=== PATIENT | male | born 1960 | race Caucasian/White ===

== ENCOUNTER 2019-06-10 19:59 | Emergency (ER) | payer SELFPAY ==
--- NOTE | 2019-06-10 20:12 | ED Physician Documentation ---
History of Present Illness - Stated complaint Stated Complaint: RACING HEART - Additonal information Additional information: This is a 58-year-old male who denies past medical history who presents with feeling of heart palpitations that began around 5 days ago. Patient states aft er he worked out at the gym 5 days ago he developed palpitations and he could hear his heartbeat in his ears, he states that it also felt irregular to him, like it was not beating at a standard interval. He denies any chest pain. He denies any shortness of breath, leg swelling, nausea or vomiting. He does not take any medications. He did state that he drank heavily a few days prior to the onset of his symptoms, he uses marijuana but otherwise denies drug use. He denies any cardiac history. His father did have a history of a valve repair later in life, no other family cardiac history. Review of Systems Constitutional: denies: Fever Eyes: denies: Loss of vision Ears: reports: Other (+ for hearing heartbeat in ears) Nose: denies: Rhinorrhea / runny nose Throat: denies: Sore throat Cardiac: reports: Palpitations Respiratory: denies: Dyspnea GI: denies: Vomiting Skin: denies: Rash Neurologic: denies: Syncope PD PAST MEDICAL HISTORY - Past Medical History Past Medical History: No - Past Surgical History Past Surgical History: No - Present Medications Home Medications: Ambulatory Orders Medication Instructions Recorded Confirmed Aspirin Chewable [[facility] Jaquan 81 mg PO DAILY #30 tablet 06/10/19 Aspirin] - Allergies Allergies/Adverse Reactions: Allergies Allergy/AdvReac Type Severity Reaction Status Date / Time No Known Drug Allergies Allergy Verified 06/10/19 20:06 - Living Situation Living Arrangement: reports: At home - Social History ETOH Use: Other (Alcohol use) Substance Use and Type: Marijuana - Family History Family history: reports: Other (Father had heart valve replacement) PD ED PE NORMAL - Vitals Vital signs reviewed: Yes - General General: Alert and oriented X 3, No acute distress - HEENT HEENT: PERRL - Neck Neck: Supple, no meningeal sign - Cardiac Cardiac: Other (Irregularly irregular rhythm, normal rate) - Respiratory Respiratory: Clear bilaterally - Abdomen Abdomen: Normal bowel sounds, Soft, Non tender, Non distended - Derm Derm: Warm and dry - Extremities Extremities: No deformity, No edema, No calf tenderness / cord - Neuro Neuro: Alert and oriented X 3 - Psych Psych: Normal mood, Normal affect Results - Vitals Vitals: Vital Signs - 24 hr 06/10/19 06/10/19 06/10/19 20:06 20:53 21:34 Temperature 36.5 C Heart Rate 82 67 81 Respiratory 16 17 Rate Blood Pressure 169/85 H 126/84 H O2 Saturation 99 99 Oxygen O2 Source Room air - EKG (time done) 20:13 Other comments: Other comments (Rate 85, rhythm unclear, but likely atrial fibrillation, there is a right bundle branch block, there are no significant ST segment changes) 20:18 Other comments: Other comments (Rate 79, rhythm atrial fibrillation, right bundle branch block. There is no unexpected ST segment elevation or depression.) - Labs Labs: Laboratory Tests 06/10/19 06/10/19 06/10/19 20:48 20:48 20:48 WBC 7.5 RBC 4.17 L Hgb 14.4 Hct 41.1 L MCV 98.6 H MCH 34.5 H MCHC 35.0 RDW 12.3 Plt Count 255 MPV 11.3 Neut # (Auto) 3.5 Lymph # (Auto) 3.1 [place] # (Auto) 0.8 Eos # (Auto) 0.1 Baso # (Auto) 0.0 Absolute Nucleated RBC 0.00 Nucleated RBC % 0.0 PT 12.7 H INR 1.1 Sodium 141 Potassium 3.5 Chloride 106 Carbon Dioxide 27 Anion Gap 8.0 BUN 13 Creatinine 1.0 Estimated GFR (MDRD) 77 L Glucose 131 H Calcium 9.1 Total Bilirubin 0.8 AST 18 ALT 19 Alkaline Phosphatase 54 Troponin I High Sens B-Natriuretic Peptide Total Protein 7.4 Albumin 4.4 Globulin 3.0 Albumin/Globulin Ratio 1.5 Lipase 40 TSH 06/10/19 06/10/19 06/10/19 20:48 20:48 20:48 WBC RBC Hgb Hct MCV MCH MCHC RDW Plt Count MPV Neut # (Auto) Lymph # (Auto) [place] # (Auto) Eos # (Auto) Baso # (Auto) Absolute Nucleated RBC Nucleated RBC % PT INR Sodium Potassium Chloride Carbon Dioxide Anion Gap BUN Creatinine Estimated GFR (MDRD) Glucose Calcium Total Bilirubin AST ALT Alkaline Phosphatase Troponin I High Sens 2.9 B-Natriuretic Peptide 56 Total Protein Albumin Globulin Albumin/Globulin Ratio Lipase TSH 2.78 - Rads (name of study) CXR Radiology: Other (Negative chest XR) PD MEDICAL DECISION MAKING - ED course Complexity details: considered differential (Atrial fibrillation, dysrhythmia, ACS, heart failure, electrolyte abnormality, thyroid disturbance, pneumothorax/lung disease) ED course: Patient presents with a feeling of palpitations, he is an irregularly irregular rhythm on exam, and his EKG confirms he has atrial fibrillation and a right bundle branch block. This is new onset for him. He has unremarkable labs including a BNP. His high sensitive troponin is negative, and a single high- sensitivity troponin is sufficient given his symptoms been ongoing for 5 days. He is rate controlled, he is not having any chest pain, and he has no signs of DVT. PE was considered but he has normal oxygen saturation, no risk factors or history of blood clots, and his diagnosis of atrial fibrillation is much more consistent with his symptoms. His chads-vasc score is 0, I discussed with him the options of anticoagulation, and we using joint decision making decided to start him on low-dose aspirin of 81 mg daily. His chest x-ray is unremarkable. Given the patient is hemodynamically stable, has reassuring labs and no signs of ACS or heart failure, normal TSH, He appears appropriate for close outpatient follow-up. Patient is flying back to [facility] [place] this week and plans to follow-up there to get his echocardiogram done in the next week. I discussed with him that we could attempt admission here to expedite the echocardiogram before he leaves to [facility] [place], but he would prefer to follow-up with a nutter up there, he is aware of the potential risks of the delay in his care by doing so, but is confident he can be seen quickly and with high quality medical care. He will return to the emergency department if he develops any shortness of breath, chest pain, elevated heart rate, or any other concerning symptoms. I recommend that he abstain from alcohol, as this may be contributing factor in his atrial fibrillation. Patient agrees. Departure - Departure Disposition: 01 Home, Self Care Clinical Impression: Atrial fibrillation Qualifiers: Atrial fibrillation type: unspecified Qualified Code(s): I48.91 - Unspecified atrial fibrillation Condition: Good Instructions: ED Afib Follow-Up: Your,PCP [Other] (Please follow-up with your primary care provider, and a nutter up soon as possible, within the next week. You do need an ultrasound of your heart, and to discuss the new onset of your atrial fibrillation as well as your right bundle branch block.) Prescriptions: Aspirin Chewable [St Jaquan Aspirin] 81 mg PO DAILY #30 tablet Comments: You were seen today for palpitations, you appear to have new onset of atrial fibrillation, which is an abnormal heart rhythm. It is unclear what the cause of this is, but please stay hydrated, avoid alcohol or drug use, and follow-up with a nutter up and primary care provider as soon as possible. You do need an ultrasound/echocardiogram of your heart. I also recommend starting aspirin. Please discuss with your nutter up and primary care provider whether you should be on aspirin or another anticoagulation, as well as any other medications for this condition. If you develop shortness of breath, chest pain, passing out, or any other concerning symptoms return to the emergency department immediately. Discharge Date/Time: 06/10/19 22:07
[2019-06-10 21:05] LABS: BASOPHILS % (AUTO) 0.4 %; EOSINOPHILS # (AUTO) 0.1 10^3/uL (0.0-0.7); EOSINOPHILS % (AUTO) 1.3 %; HGB - HEMOGLOBIN 14.4 g/dL (14.0-18.0); LYMPHOCYTES # (AUTO) 3.1 10^3/uL (1.5-3.5); LYMPHOCYTES % (AUTO) 41.2 %; MEAN CORPUSCULAR HEMOGLOBIN 34.5 pg (27.0-31.0); MEAN CORPUSCULAR VOLUME 98.6 fL (80.0-94.0); MEAN PLATELET VOLUME 11.3 fL (7.4-11.4); MONOCYTES # (AUTO) 0.8 10^3/uL (0.0-1.0); MONOCYTES % (AUTO) 10.1 %; NEUTROPHILS # (AUTO) 3.5 10^3/uL (1.5-6.6); NEUTROPHILS % (AUTO) 46.7 %; PLT - PLATELET COUNT 255 10^3/uL (130-450); RED BLOOD COUNT 4.17 10^6/uL (4.70-6.10); RED CELL DISTRIBUTION WIDTH 12.3 % (12.0-15.0); WHITE BLOOD COUNT 7.5 x10^3/uL (4.8-10.8)
[2019-06-10 21:11] LABS: INR 1.1 (0.8-1.2); PT - PROTHROMBIN TIME 12.7 secs (9.9-12.6)
[2019-06-10 21:18] LABS: ALBUMIN 4.4 g/dL (3.2-5.5); ALBUMIN/GLOBULIN RATIO 1.5 (1.0-2.2); BILIRUBIN,TOTAL 0.8 mg/dL (0.2-1.0); CALCIUM 9.1 mg/dL (8.5-10.3); TOTAL PROTEIN 7.4 g/dL (6.7-8.2)
--- NOTE | 2019-06-10 21:31 | XRAY Report ---
Reason: Palpitations Procedure Date: 06/10/2019 Accession Number: [id number] / [id number] Procedure: XR - Chest 2 View X-Ray CPT Code: 74826 FULL RESULT: EXAM: CHEST RADIOGRAPHY EXAM DATE: 06/10/2019 08:54 PM. CLINICAL HISTORY: Palpitations. COMPARISON: None. TECHNIQUE: 2 views. FINDINGS: Lungs/Pleura: No focal opacities evident. No pleural effusion. No pneumothorax. Normal volumes. Mediastinum: Heart and mediastinal contours are unremarkable. Other: None. IMPRESSION: Negative chest RADIA
[2019-06-10 21:34] VITALS: BP 126/84
== END 2019-06-10 22:07 | disposition home or self-care (01) ==
LOC: ED 19:59
DX: I48.91 Unspecified atrial fibrillation (principal); I45.10 Unspecified right bundle-branch block; Z82.49 Family history of ischemic heart disease and other diseases of the circulatory system
CPT/HCPCS: 36415; 71046; 80053; 83690; 83880; 84443; 84484; 85025; 85610; 93005; 99284